=== PATIENT | female | born 1995 | race Caucasian/White ===

== ENCOUNTER 2018-08-12 03:38 | Emergency (ER) | payer OTHER ==
[~2018-08-12] VITALS: Ht 152.4 cm; Wt 82.7 kg
[2018-08-12 03:44] VITALS: Ht 152.4 cm; Wt 82.7 kg
[2018-08-12] MEDS ORDERED: ACETAMINOPHEN 500 MG TAB PO STA (04:37)
--- NOTE | 2018-08-12 04:37 | ERD ---
ER Documentation Chief Complaint Chief Complaint Pt c/o CWP reproduceable with palpation and movemen x 3 weeks HPI 22-year-old female complains of chest wall pain for the past 2 months. States that the pain is reproducible with palpation and with movement of her arm. States that she took 2 aspirins at 2 AM. Denies SOB, dyspnea, lower extremity swelling or pain, pain on exertion, diaphoresis, nausea, radiating of pain, recent travel or immobilization, hemoptysis, dsypnea, history of clotting disorder, syncope, fever, or cough. ROS All systems reviewed and are negative except as per history of present illness. Medications Home Meds Active Scripts Ibuprofen* (Motrin*) 600 Mg Tab, 600 MG PO Q6 for pain, #30 TAB Prov:CUAUHTEMOC HANSEN 08/12/18 Allergies Allergies: Coded Allergies: No Known Allergy (Unverified , 08/12/18) PMhx/Soc Medical and Surgical Hx: pt denies Medical Hx, pt denies Surgical Hx Hx Alcohol Use: No Hx Substance Use: No Hx Tobacco Use: No Smoking Status: Never smoker FmHx Family History: No diabetes, No coronary disease, No other Physical Exam Vitals Vital Signs Date Temp Pulse Resp B/P (MAP) Pulse Ox O2 O2 Flow FiO2 Time Delivery Rate 08/12/18 98.0 87 19 122/55 100 Room Air 06:15 (77) 08/12/18 97.5 82 16 126/68 99 03:44 (87) Physical Exam Const: No acute distress Head: Atraumatic Eyes: Normal Conjunctiva ENT: Normal External Ears, Nose and Mouth. Neck: Full range of motion. No meningismus. Resp: Clear to auscultation bilaterally. Tenderness to palpation over the left anterior chest wall. There is no edema erythema or bony deformity noted. Overlying skin is intact. Cardio: Regular rate and rhythm, no murmurs Abd: Soft, non tender, non distended. Normal bowel sounds Skin: No petechiae or rashes Back: No midline or flank tenderness Ext: No cyanosis, or edema Neur: Awake and alert Psych: Normal Mood and Affect Results 24 hrs Laboratory Tests Test 08/12/18 04:49 08/12/18 04:55 POC Beta HCG, Qualitative NEGATIVE Troponin I < 0.012 ng/ml Current Medications Medications Dose Sig/Xiomy Start Time Status Last (Trade) Ordered Route PRN Stop Time Admin Dose Reason Admin 1,000 mg ONCE STAT 08/12/18 DC 08/12/18 Acetaminophen PO 04:37 04:47 (Tylenol 08/12/18 04:38 Tab) Procedures/MDM EKG: Rate/Rhythm: Normal Sinus Rhythm QRS, ST, T-waves: No changes consistent w/ acute ischemia Impression: No evidence of ischemia or arrhythmia DIAGNOSTIC IMAGING REPORT Patient: YURIDIA SOLER : 1995 Age: 22 Sex: F MR #: [id number] DOS: 08/12/18 0434 Ordering MD: CUAUHTEMOC HANSEN Location: [facility] Room/Bed: PROCEDURE: CHEST - 1 VIEW CLINICAL INDICATION: 22-year-old female with chest pain. TECHNIQUE: A single frontal PA erect view of the chest was performed. The images were reviewed on a PACS workstation. COMPARISON: None. FINDINGS: The cardiomediastinal silhouette has a normal appearance. There is no evidence for an infiltrate. The pulmonary vascularity is within normal limits. There is no evidence for pneumothorax or pneumomediastinum. The osseous structures are intact. IMPRESSION: No evidence for active cardiopulmonary disease. .Johnny Rapp MD, MD Date Time Electronically viewed and signed by .Johnny Rapp MD, MD on 08/12/2018 05:24 .M/ CC: CUAUHTEMOC HANSEN [phone] MDM: CXR and EKG were WNL. CP is reproducible with movement and palpation. Most likely etioology is mskI have low suspicition for acute coronary syndrome, pulmonary embolism, aortic dissection, AAA, pneumothorax, esophageal rupture, pericarditis, myocarditis, or pneumonia based on EKG, imaging, labs, patient history and exam. Patient discharged with strict ER precautions. Patient advised to follow up with PMD. All questions answered at discharge. Departure Diagnosis: Primary Impression: Chest wall pain Condition: Stable CUAUHTEMOC HANSEN Aug 12, 2018 04:37
[2018-08-12] MEDS ORDERED: IBUP-1542 PO (05:54)
[2018-08-12 06:15] VITALS: BP 122/55; PULSE 87; RESP 19
== END 2018-08-12 06:17 | disposition home or self-care (01) ==
LOC: FTE 03:38
DX: R07.89 Other chest pain (principal)
CPT/HCPCS: 71045; 81025; 84484; Z7502; Z7610